=== PATIENT | female | born 1940 | race Caucasian/White ===

== ENCOUNTER → 2018-01-20 | Outpatient (CLI) | payer OTHER | END | disposition home or self-care (01) | LOC: ECHO 09:45 | DX: I08.3 Combined rheumatic disorders of mitral, aortic and tricuspid valves (principal); I27.20 Pulmonary hypertension, unspecified | CPT/HCPCS: 93306 ==

== ENCOUNTER 2018-07-26 11:03 | Emergency (ER) | payer MEDICARE, OTHER ==
[~2018-07-26] VITALS: Ht 152.4 cm; Wt 61.2 kg
--- NOTE | 2018-07-26 14:33 | RAD ---
Three-view right foot dated 07/26/2018. No comparison available. CLINICAL INDICATION: Pain after fall. FINDINGS: 3 views the right foot show normal bony alignment. No displaced fracture. No acute osseous or articular abnormality. IMPRESSION: No acute findings. Electronically signed by: Harsh Farias MD (07/26/2018 2:29 PM) [facility] – [place]
[2018-07-26 14:53] LABS: BASO # 0.1 x10^3/uL (0.0-0.2); BASO % 1 % (0-3); EOS # 0.2 x10^3/uL (0.0-0.7); EOS % 3 % (0-3); HEMATOCRIT 36.5 % (36.0-47.0); HEMOGLOBIN 12.1 g/dL (12.0-15.5); LYMPH # 2.3 x10^3/uL (1.0-4.8); LYMPH % 34 % (24-48); MEAN CORPUSCULAR HEMOGLOBIN 29 pg (25-35); MEAN CORPUSCULAR HGB CONC 33 g/dL (31-37); MEAN CORPUSCULAR VOLUME 87 fL (79-100); MONO # 1.2 x10^3/uL (0.0-1.1); MONO % 17 % (0-9); NEUT # 3.2 x10^3uL (1.8-7.7); NEUT % 46 % (31-73); PLATELET COUNT 189 x10^3/uL (140-400); RED BLOOD COUNT 4.22 x10^6/uL (3.50-5.40); RED CELL DISTRIBUTION WIDTH 13.7 % (11.5-14.5); WHITE BLOOD COUNT 6.9 x10^3/uL (4.0-11.0)
[2018-07-26 15:01] LABS: CALCIUM 9.8 mg/dL (8.5-10.1); CREATININE 1.1 mg/dL (0.6-1.0); GFR 48.2; POTASSIUM 3.7 mmol/L (3.5-5.1)
[2018-07-26 15:06] LABS: ALBUMIN 3.1 g/dL (3.4-5.0); ALBUMIN/GLOBULIN RATIO 0.8 (1.0-1.7); TOTAL BILIRUBIN 0.3 mg/dL (0.2-1.0); TOTAL PROTEIN 6.9 g/dL (6.4-8.2)
--- NOTE | 2018-07-26 15:33 | RAD ---
CT head without contrast and cervical spine without contrast dated 07/26/2018. No comparison available. CLINICAL INDICATION: Pain after fall yesterday. TECHNIQUE: Contiguous axial imaging the head was performed from skull base to vertex. In addition, axial imaging of the cervical spine acquired with thin cut coronal and sagittal reconstruction. One or more of the following individualized dose reduction techniques were utilized for this examination: 1. Automated exposure control 2. Adjustment of the mA and/or kV according to patient size 3. Use of iterative reconstruction technique. FINDINGS: Ventricles and sulci are mildly prominent for age. No midline shift or mass effect. Mild patchy low density in the deep/subcortical periventricular white matter. No hemorrhage or extra axial collection. Posterior fossa and brainstem unremarkable. Visualized paranasal sinuses and mastoid air cells are clear. No apparent calvarial abnormality. Images of cervical spine were acquired skull base to mid T2. There is slight retrolisthesis of C5 on C6 and C6 on C7. Mild anterolisthesis of C3 on C4. Sagittal alignment is otherwise anatomic. Vertebral body heights are maintained. No prevertebral soft tissue swelling. Posterior elements are intact. No apparent fracture. Mild to moderate endplate hypertrophic changes throughout. Severe disc space narrowing at C4-C5, C5-C6 and C6-C7 with multilevel uncovertebral spurring and facet arthropathy. There is multilevel mild to moderate bilateral foraminal stenosis. There is also mild central stenosis at the mid to lower cervical levels. Visualized soft tissue structures are unremarkable. Limited images of the lung apices are clear. Mild emphysema. IMPRESSION HEAD: 1. No evidence of acute intracranial hemorrhage or mass. 2. Mild chronic small vessel ischemic changes and atrophy. Impression cervical spine: 1. No evidence of fracture or malalignment. 2. Moderate multilevel spondylosis. Electronically signed by: Harsh Farias MD (07/26/2018 3:29 PM) [facility] [place]
--- NOTE | 2018-07-26 15:39 | PHYS DOC ---
Past Medical History Past Medical History: Anxiety, Asthma, Depression, Fibromyalgia, Hypertension, Other Additional Past Medical Histor: INSOMINA Past Surgical History: Appendectomy, Hysterectomy Alcohol Use: None Drug Use: Marijuana Adult General Chief Complaint Chief Complaint: LOWER EXT PAIN HPI HPI Patient is a 78 year old female presents for evaluation of bilateral lower extremity redness and swelling for the last 2-3 days. She denies fevers. Also reports had a fall yesterday, hit her head on the ground. Denies loss of consciousness. Review of Systems Review of Systems Constitutional: Denies fever or chills [] Eyes: Denies change in visual acuity, redness, or eye pain [] HENT: Denies nasal congestion or sore throat [] Respiratory: Denies cough or shortness of breath [] Cardiovascular: No additional information not addressed in HPI [] GI: Denies abdominal pain, nausea, vomiting, bloody stools or diarrhea [] : Denies dysuria or hematuria [] Musculoskeletal: Lower extremity pain, right foot pain Integument: Redness to bilateral lower extremities Neurologic: Denies headache, focal weakness or sensory changes [] Endocrine: Denies polyuria or polydipsia [] All other systems were reviewed and found to be within normal limits, except as documented in this note. Current Medications Current Medications Current Medications Medications (Trade) Dose Ordered Sig/Nahid Start Time Stop Time Status Last Admin Dose Admin Ceftriaxone Sodium (Rocephin) 1 gm 1X ONCE 07/26/18 15:45 07/26/18 15:46 DC 07/26/18 15:59 1 GM Allergies Allergies Allergies Coded Allergies Type Severity Reaction Last Updated Verified No Known Drug Allergies 07/26/18 No Physical Exam Physical Exam Constitutional: Well developed, well nourished, no acute distress, non-toxic appearance. [] Cardiovascular:Heart rate regular rhythm, no murmur [] Lungs & Thorax: Bilateral breath sounds clear to auscultation [] Abdomen: Bowel sounds normal, soft, no tenderness, no masses, no pulsatile masses. [] Skin: Bilateral lower extremities erythematous, warm, tender, edematous consistent with cellulitis, pulses equal and intact Back: No tenderness, no CVA tenderness. [] Extremities: , no cyanosis, no clubbing, ROM intact, right foot contusion. [] Neurologic: Alert and oriented X 3, normal motor function, normal sensory function, no focal deficits noted. [] Psychologic: Affect normal, judgement normal, mood normal. [] Current Patient Data Vital Signs Vital Signs Date Time Temp Pulse Resp B/P (MAP) Pulse Ox O2 Delivery O2 Flow Rate FiO2 07/26/18 18:00 95 15 149/66 (93) 97 Room Air 07/26/18 13:31 97.9 97.9 Lab Values Laboratory Tests Test 07/26/18 14:31 White Blood Count 6.9 x10^3/uL (4.0-11.0) Red Blood Count 4.22 x10^6/uL (3.50-5.40) Hemoglobin 12.1 g/dL (12.0-15.5) Hematocrit 36.5 % (36.0-47.0) Mean Corpuscular Volume 87 fL (79-100) Mean Corpuscular Hemoglobin 29 pg (25-35) Mean Corpuscular Hemoglobin Concent 33 g/dL (31-37) Red Cell Distribution Width 13.7 % (11.5-14.5) Platelet Count 189 x10^3/uL (140-400) Neutrophils (%) (Auto) 46 % (31-73) Lymphocytes (%) (Auto) 34 % (24-48) Monocytes (%) (Auto) 17 % (0-9) H Eosinophils (%) (Auto) 3 % (0-3) Basophils (%) (Auto) 1 % (0-3) Neutrophils # (Auto) 3.2 x10^3uL (1.8-7.7) Lymphocytes # (Auto) 2.3 x10^3/uL (1.0-4.8) Monocytes # (Auto) 1.2 x10^3/uL (0.0-1.1) H Eosinophils # (Auto) 0.2 x10^3/uL (0.0-0.7) Basophils # (Auto) 0.1 x10^3/uL (0.0-0.2) Sodium Level 136 mmol/L (136-145) Potassium Level 3.7 mmol/L (3.5-5.1) Chloride Level 101 mmol/L (98-107) Carbon Dioxide Level 31 mmol/L (21-32) Anion Gap 4 (6-14) L Blood Urea Nitrogen 11 mg/dL (7-20) Creatinine 1.1 mg/dL (0.6-1.0) H Estimated GFR (Cockcroft-Gault) 48.2 BUN/Creatinine Ratio 10 (6-20) Glucose Level 86 mg/dL (70-99) Lactic Acid Level 0.6 mmol/L (0.4-2.0) Calcium Level 9.8 mg/dL (8.5-10.1) Total Bilirubin 0.3 mg/dL (0.2-1.0) Aspartate Amino Transferase (AST) 36 U/L (15-37) Alanine Aminotransferase (ALT) 29 U/L (14-59) Alkaline Phosphatase 57 U/L (46-116) Total Protein 6.9 g/dL (6.4-8.2) Albumin 3.1 g/dL (3.4-5.0) L Albumin/Globulin Ratio 0.8 (1.0-1.7) L Laboratory Tests 07/26/18 14:31 Laboratory Tests 07/26/18 14:31 EKG EKG [] Radiology/Procedures Radiology/Procedures []REASON: fall, contusion PROCEDURE: FOOT RIGHT 3V Three-view right foot dated 07/26/2018. No comparison available. CLINICAL INDICATION: Pain after fall. FINDINGS: 3 views the right foot show normal bony alignment. No displaced fracture. No acute osseous or articular abnormality. IMPRESSION: No acute findings. Electronically signed by: Harsh Farias MD (07/26/2018 2:29 PM) [facility] – [place] DICTATED and SIGNED BY: HARSH FARIAS MD DATE: 07/26/18 1428 STATUS: REG ER ORD. PHYSICIAN: SHIRA NELSON APRN REASON: fall yesterday , hit head PROCEDURE: CT HEAD AND CERVICAL SPINE WO CT head without contrast and cervical spine without contrast dated 07/26/2018. No comparison available. CLINICAL INDICATION: Pain after fall yesterday. TECHNIQUE: Contiguous axial imaging the head was performed from skull base to vertex. In addition, axial imaging of the cervical spine acquired with thin cut coronal and sagittal reconstruction. One or more of the following individualized dose reduction techniques were utilized for this examination: 1. Automated exposure control 2. Adjustment of the mA and/or kV according to patient size 3. Use of iterative reconstruction technique. FINDINGS: Ventricles and sulci are mildly prominent for age. No midline shift or mass effect. Mild patchy low density in the deep/subcortical periventricular white matter. No hemorrhage or extra axial collection. Posterior fossa and brainstem unremarkable. Visualized paranasal sinuses and mastoid air cells are clear. No apparent calvarial abnormality. Images of cervical spine were acquired skull base to mid T2. There is slight retrolisthesis of C5 on C6 and C6 on C7. Mild anterolisthesis of C3 on C4. Sagittal alignment is otherwise anatomic. Vertebral body heights are maintained. No prevertebral soft tissue swelling. Posterior elements are intact. No apparent fracture. Mild to moderate endplate hypertrophic changes throughout. Severe disc space narrowing at C4-C5, C5-C6 and C6-C7 with multilevel uncovertebral spurring and facet arthropathy. There is multilevel mild to moderate bilateral foraminal stenosis. There is also mild central stenosis at the mid to lower cervical levels. Visualized soft tissue structures are unremarkable. Limited images of the lung apices are clear. Mild emphysema. IMPRESSION HEAD: 1. No evidence of acute intracranial hemorrhage or mass. 2. Mild chronic small vessel ischemic changes and atrophy. Impression cervical spine: 1. No evidence of fracture or malalignment. 2. Moderate multilevel spondylosis. Electronically signed by: Harsh Farias MD (07/26/2018 3:29 PM) [facility] – [place] DICTATED and SIGNED BY: HARSH FARIAS MD DATE: 07/26/18 1526 PROCEDURE: VENOUS LOWER EXT BILATERAL Left leg venous Doppler study: Clinical indications: Left leg swelling and pain. Findings: Duplex sonography (including collins scale evaluation and color flow and waveform spectral analysis) of the proximal aspect of the greater saphenous vein and the proximal aspect of the profunda femoral vein and the entire length of the common femoral and superficial femoral and popliteal veins and the tibioperoneal trunk and the proximal aspect of the posterior tibial and peroneal veins of the left leg was performed. Normal compressibility, augmentation of color Doppler flow after calf compression, and respiratory variation of Doppler flow is seen. Thus, there are no sonographic findings of deep venous thrombosis within these veins. Impression: There are no sonographic findings of deep venous thrombosis within the veins discussed above of the left lower extremity. Right leg venous Doppler study: Clinical indications: Right leg swelling and pain. Findings: Duplex sonography (including collins scale evaluation and color flow and waveform spectral analysis) of the proximal aspect of the greater saphenous vein and proximal aspect of the profunda femoral vein and the entire length of the common femoral and superficial femoral and popliteal veins and the tibioperoneal trunk and the proximal aspect of the posterior tibial and peroneal veins of the right leg was performed. Normal compressibility, augmentation of color Doppler flow after calf compression, and respiratory variation of Doppler flow is seen. Thus, there are no sonographic findings of deep venous thrombosis within these veins. Impression: There are no sonographic findings of deep venous thrombosis within the veins discussed above of the right lower extremity. Course & Med Decision Making Course & Med Decision Making Pertinent Labs and Imaging studies reviewed. (See chart for details) [treated with antibiotics for bilateral lower extremity cellulitis, recommend close follow-up with primary care doctor under Saturday, return to ER for new or worsening symptoms.] Dragon Disclaimer Dragon Disclaimer This electronic medical record was generated, in whole or in part, using a voice recognition dictation system. Departure Departure Impression: Primary Impression: Cellulitis Disposition: HOME, SELF-CARE Condition: STABLE Referrals: TRACIE ECHEVARRIA MD (PCP) Patient Instructions: Cellulitis Scripts Cephalexin (KEFLEX) 500 Mg Capsule 1 CAP PO TID, #21 CAP Prov: SHIRA NELSON AEROGRAPHER 07/26/18 SHIRA NELSON APRN Jul 26, 2018 15:39
[2018-07-26] MEDS ORDERED: cefTRIAXone IV Push 1 GM VIAL. IVP ONE (15:45)
[2018-07-26 18:00] VITALS: BP 149/66
--- NOTE | 2018-07-26 18:08 | RAD ---
Left leg venous Doppler study: Clinical indications: Left leg swelling and pain. Findings: Duplex sonography (including collins scale evaluation and color flow and waveform spectral analysis) of the proximal aspect of the greater saphenous vein and the proximal aspect of the profunda femoral vein and the entire length of the common femoral and superficial femoral and popliteal veins and the tibioperoneal trunk and the proximal aspect of the posterior tibial and peroneal veins of the left leg was performed. Normal compressibility, augmentation of color Doppler flow after calf compression, and respiratory variation of Doppler flow is seen. Thus, there are no sonographic findings of deep venous thrombosis within these veins. Impression: There are no sonographic findings of deep venous thrombosis within the veins discussed above of the left lower extremity. Right leg venous Doppler study: Clinical indications: Right leg swelling and pain. Findings: Duplex sonography (including collins scale evaluation and color flow and waveform spectral analysis) of the proximal aspect of the greater saphenous vein and proximal aspect of the profunda femoral vein and the entire length of the common femoral and superficial femoral and popliteal veins and the tibioperoneal trunk and the proximal aspect of the posterior tibial and peroneal veins of the right leg was performed. Normal compressibility, augmentation of color Doppler flow after calf compression, and respiratory variation of Doppler flow is seen. Thus, there are no sonographic findings of deep venous thrombosis within these veins. Impression: There are no sonographic findings of deep venous thrombosis within the veins discussed above of the right lower extremity. Electronically signed by: Abelino Lam MD (07/26/2018 6:03 PM) [facility]
[2018-07-26] MEDS ORDERED: CEPH-264 PO (18:12)
== END 2018-07-26 18:39 | disposition home or self-care (01) ==
LOC: ER 11:03
DX: S90.31XA Contusion of right foot, initial encounter (principal); L03.115 Cellulitis of right lower limb; L03.116 Cellulitis of left lower limb; S09.90XA Unspecified injury of head, initial encounter; J45.909 Unspecified asthma, uncomplicated; I10 Essential (primary) hypertension; Z90.89 Acquired absence of other organs; Z90.710 Acquired absence of both cervix and uterus; W18.09XA Striking against other object with subsequent fall, initial encounter; Y93.89 Activity, other specified; Y92.89 Other specified places as the place of occurrence of the external cause; Y99.8 Other external cause status
CPT/HCPCS: 36415; 70450; 72125; 73630; 80053; 83605; 85025; 93970; 96374; 99284; J0696

== ENCOUNTER → 2018-08-19 | Outpatient (CLI) | payer OTHER ==
[2018-07-26 18:00] VITALS: BP 149/66
[~2018-08-19] MED LIST: CEPH-264 PO
--- NOTE | 2018-08-19 10:57 | CARD ---
MR#: [id number] Date of Study: 08/19/2018 Ordering Physician: TRACIE ECHEVARRIA, Referring Physician: TRACIE ECHEVARRIA, Tech: Trudy Baldwin [facility] APPROVED REPORT EXAM: Two-dimensional and M-mode echocardiogram with Doppler and color Doppler. Other Information Quality : GoodHR: 82bpm Rhythm : Other INDICATION Edema 2D DIMENSIONS RVDd2.7 (2.9-3.5cm)Left Atrium(2D)3.0 (1.6-4.0cm) IVSd0.9 (0.7-1.1cm)Aortic Root(2D)2.5 (2.0-3.7cm) LVDd3.9 (3.9-5.9cm)LVOT Diameter1.7 (1.8-2.4cm) PWd0.6 (0.7-1.1cm)LVDs2.5 (2.5-4.0cm) FS (%) 36.8 %SV44.2 ml LVEF(%)67.3 (>50%) M-Mode DIMENSIONS Left Atrium(MM)3.27 (2.5-4.0cm)Aortic Root2.65 (2.2-3.7cm) Aortic Valve AoV Peak Galo.190.8cm/sAoV VTI43.7cm AO Peak GR.14.6mmHgLVOT Peak Galo.122.1cm/s AO Mean GR.7mmHgAVA (VMAX)1.47cm2 KELLY (VTI)1.60cm2 Mitral Valve MV E Jmlyjjpe172.2cm/sMV DECEL [id number] MV A Zljpgdjc858.0cm/sE/A Ratio1.1 MV A [id number] Pulmonary Valve PV Peak Gbhcdrik50.4cm/s Tricuspid Valve TR P. [id number]/sRAP [id number] TR Peak Gr.07myAxZCSD50pzTx LEFT VENTRICLE The left ventricle is normal size. There is normal left ventricular wall thickness. The left ventricu lar systolic function is normal and the ejection fraction is within normal range. The Ejection Fracti on is 60-65%. There is normal LV segmental wall motion. Transmitral Doppler flow pattern is abnormal. RIGHT VENTRICLE The right ventricle is normal size. There is normal right ventricular wall thickness. The right ventr icular systolic function is normal. ATRIA The left atrium size is normal. The right atrium size is normal. The interatrial septum is intact wit h no evidence for an atrial septal defect or patent foramen ovale as noted on 2-D or Doppler imaging. AORTIC VALVE The aortic valve is normal in structure and function. The aortic valve is trileaflet. Doppler and Col or Flow revealed trace aortic regurgitation. There is no significant aortic valvular stenosis. MITRAL VALVE The mitral valve is normal in structure and function. There is no evidence of mitral valve prolapse. There is no mitral valve stenosis. Doppler and Color-flow revealed trace mitral regurgitation. TRICUSPID VALVE The tricuspid valve is normal in structure and function. Doppler and Color Flow revealed trace tricus pid regurgitation. The PA pressure was estimated at 29 mmHg. There is no tricuspid valve prolapse or vegetation. There is no tricuspid valve stenosis. PULMONIC VALVE Pulmonic valve not well visualized. GREAT VESSELS The aortic root is normal in size. The ascending aorta is normal in size. The IVC is normal in size a nd collapses >50% with inspiration. PERICARDIAL EFFUSION There is no evidence of significant pericardial effusion. Critical Notification Critical Value: No <Conclusion> The left ventricular systolic function is normal and the ejection fraction is within normal range. Th e Ejection Fraction is 60-65%. There is normal LV segmental wall motion. Signed by : Tristian Stearns, Electronically Approved : 08/19/2018 10:56:48
== END | disposition home or self-care (01) ==
LOC: ECHO 09:52
PROVIDERS: ATTEND Family Medicine
DX: R60.9 Edema, unspecified (principal)
CPT/HCPCS: 93306